=== PATIENT | female | born 1950 | race Caucasian/White ===

== ENCOUNTER 2017-11-24 15:53 | Emergency (ER) | payer MEDICARE, MEDICAID ==
--- NOTE | 2017-11-24 16:31 | EDM.PDOC ---
ED HPI GENERAL MEDICAL PROBLEM - General Chief Complaint: Upper Extremity Injury/Pain Stated Complaint: MEDICAL Time Seen by Provider: 11/24/17 16:00 Source of Information: Reports: Patient, EMS, RN History Limitations: Reports: No Limitations - History of Present Illness INITIAL COMMENTS - FREE TEXT/NARRATIVE: 67 yo female with MS was being moved with a [employer] lift and got dropped. Initially had pain in the L elbow area primarily from the fall so was sent via EMS for eval. Has not been given any analgesia for this so far, but on arrival in the ER her pain is almost completely gone. 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) Past Medical History Musculoskeletal History: Reports: Muscular Dystrophy Neurological History: Reports: MS - Past Surgical History Female Surgical History: Reports: Tubal Ligation Social & Family History - Tobacco Use Smoking Status *Q: Never Smoker Review of Systems - Review of Systems Review Of Systems: See Below Constitutional: Reports: No Symptoms Eyes: Reports: No Symptoms Ears: Reports: No Symptoms Nose: Reports: No Symptoms Mouth/Throat: Reports: No Symptoms Respiratory: Reports: No Symptoms Cardiovascular: Reports: No Symptoms GI/Abdominal: Reports: No Symptoms Genitourinary: Reports: No Symptoms Musculoskeletal: Reports: No Symptoms Skin: Reports: No Symptoms Neurological: Reports: No Symptoms ED EXAM, GENERAL - Physical Exam Exam: See Below Exam Limited By: No Limitations General Appearance: Alert, WD/WN, No Apparent Distress, Obese Eye Exam: Bilateral Eye: EOMI, Normal Inspection, PERRL Ears: Normal External Exam, Normal Canal, Hearing Grossly Normal Ear Exam: Bilateral Ear: Auricle Normal, Canal Normal Nose: Normal Inspection, Normal Mucosa, No Blood Throat/Mouth: Normal Inspection, Normal Lips, Normal Oropharynx, Normal Voice, No Airway Compromise Head: Atraumatic, Normocephalic Neck: Normal Inspection, Supple Respiratory/Chest: No Respiratory Distress, Lungs Clear, Normal Breath Sounds Cardiovascular: Regular Rate, Rhythm, No Edema GI/Abdominal: Normal Bowel Sounds, Soft, Non-Tender, No Distention Back Exam: Normal Inspection. No: CVA Tenderness (R), CVA Tenderness (L) Extremities: Normal Inspection, Non-Tender, No Pedal Edema, Other (Has some contractures from her MS, but movement is pain-free) Neurological: Alert, Oriented, CN II-XII Intact, No Motor/Sensory Deficits Psychiatric: Normal Affect, Normal Mood Skin Exam: Warm, Dry, Intact, Normal Color, No Rash Lymphatic: No Adenopathy Course - Vital Signs Last Recorded V/S: Last Vital Signs Temp 36.5 C 11/24/17 16:08 Pulse 72 11/24/17 16:08 Resp 18 11/24/17 16:08 BP 135/78 11/24/17 16:08 Pulse Ox 95 11/24/17 16:08 Departure - Departure Time of Disposition: 16:30 Disposition: Home, Self-Care 01 Condition: Good Clinical Impression: Contusion of elbow, left Qualifiers: Encounter type: initial encounter Qualified Code(s): S50.02XA - Contusion of left elbow, initial encounter - Discharge Information Instructions: Contusion, [id number] Referrals: PCP,None [Primary Care Provider] - Forms: ED Department Discharge Additional Instructions: Continue usual cares. Recheck as needed.
== END 2017-11-24 17:59 | disposition home or self-care (01) ==
LOC: JP.ED 15:53
DX: S50.02XA Contusion of left elbow, initial encounter (principal); W17.89XA Other fall from one level to another, initial encounter
CPT/HCPCS: 99283

== ENCOUNTER 2019-03-07 00:19 | Emergency (ER) | payer MEDICARE, MEDICAID ==
--- NOTE | 2019-03-07 02:01 | EDM.PDOC ---
ED HPI GENERAL MEDICAL PROBLEM - General Chief Complaint: Genitourinary Problem Stated Complaint: UTI?? Time Seen by Provider: 03/07/19 01:00 Source of Information: Reports: Patient, Family History Limitations: Reports: No Limitations - History of Present Illness INITIAL COMMENTS - FREE TEXT/NARRATIVE: 68-year-old female lives in assisted care living complex. She has numerous medical problems including MS and is a quadriplegic. She has been running fevers today which was suspected to be a urinary tract infection which she often gets because of the full-time suprapubic catheter. She is unable to feel any pain because of her quadriplegia. She does see a urologist and neurologist at [facility] at [place]. She was feeling weaker than usual today. She was transferred here by EMS. 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, Other (see below) Other Treatments BLUEPRINT CLERK: tylenol at 2345 prior to transfer - Related Data Allergies Allergy/AdvReac Type Severity Reaction Status Date / Time Latex, Natural Rubber Allergy Rash Verified 03/07/19 00:29 Penicillins Allergy Cannot Verified 03/07/19 00:29 Remember Home Meds: Home Meds Baclofen 10 mg PO QID 11/24/17 [History] Furosemide [Lasix] 20 mg PO DAILY 11/24/17 [History] Gabapentin [Neurontin] 300 mg PO BEDTIME 11/24/17 [History] LORazepam 0.5 mg PO BID 11/24/17 [History] Losartan [Cozaar] 25 mg PO ACLUNCH 11/24/17 [History] Metoclopramide [Reglan] 10 mg PO BEDTIME 11/24/17 [History] Omeprazole 20 mg PO ACBREAKFAST 11/24/17 [History] Venlafaxine [Effexor XR] 150 mg PO DAILY 11/24/17 [History] Acetaminophen 500 mg PO BID 03/07/19 [History] Fluticasone Furoate [Arnuity Ellipta] 50 mcg NASBOTH DAILY 03/07/19 [History] Loratadine 10 mg PO DAILY 03/07/19 [History] Vitamin B Complex [B Complex] 1 each PO DAILY 03/07/19 [History] traZODone HCl [Trazodone HCl] 50 mg PO BEDTIME 03/07/19 [History] Past Medical History Genitourinary History: Reports: Other (See Below) 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: Musculoskeletal History: Reports: Muscular Dystrophy Neurological History: Reports: MS - Infectious Disease History Infectious Disease History: Reports: Chicken Pox - Past Surgical History Female Surgical History: Reports: Tubal Ligation Social & Family History - Family History Family Medical History: Unobtainable - Tobacco Use Smoking Status *Q: Never Smoker Second Hand Smoke Exposure: No - Caffeine Use Caffeine Use: Reports: Coffee - Recreational Drug Use Recreational Drug Use: No ED ROS GENERAL - Review of Systems Review Of Systems: See Below Constitutional: Reports: Fever, Chills, Weakness HEENT: Reports: No Symptoms Respiratory: Reports: No Symptoms Cardiovascular: Reports: No Symptoms GI/Abdominal: Reports: No Symptoms. Denies: Diarrhea, Nausea ED EXAM, RENAL/ - Physical Exam Exam: See Below Exam Limited By: No Limitations General Appearance: Alert Nose: Normal Inspection Throat/Mouth: Normal Inspection Respiratory/Chest: No Respiratory Distress, Lungs Clear, Normal Breath Sounds Cardiovascular: Normal Peripheral Pulses, Regular Rate, Rhythm GI/Abdominal: Normal Bowel Sounds, Soft, Non-Tender (Female) Exam: Other (Suprapubic catheter looks normal.) Neurological: Alert, Oriented Course - Vital Signs Last Recorded V/S: Last Vital Signs Temp 37.6 C 03/07/19 04:39 Pulse 101 H 03/07/19 04:39 Resp 14 03/07/19 04:39 BP 157/73 H 03/07/19 04:39 Pulse Ox 92 L 03/07/19 04:39 - Orders/Labs/Meds Orders: Active Orders 24 hr Category Date Time Status Peripheral IV Care [RC] . DIRECTED Care 03/07/19 02:40 Active Chest 1V Frontal [CR] Urgent Exams 03/07/19 02:31 Taken CULTURE BLOOD [BC] Urgent Lab 03/07/19 02:45 Received CULTURE BLOOD [BC] Urgent Lab 03/07/19 02:50 Received Blood Culture x2 Reflex Set [OM.PC] Urgent Oth 03/07/19 02:34 Ordered Peripheral IV Insertion Adult [OM.PC] Urgent Oth 03/07/19 02:39 Ordered Labs: Laboratory Tests 03/07/19 03/07/19 03/07/19 Range/Units 01:22 01:22 01:22 WBC 20.2 H (4.5-11.0) K/uL RBC 4.25 (3.30-5.50) M/uL Hgb 12.5 (12.0-15.0) g/dL Hct 38.0 (36.0-48.0) % MCV 89 (80-98) fL MCH 29 (27-31) pg MCHC 33 (32-36) % Plt Count 290 (150-400) K/uL Neut % (Auto) 93 H (36-66) % Lymph % (Auto) 5 L (24-44) % Orange % (Auto) 3 (2-6) % Eos % (Auto) 0 L (2-4) % Baso % (Auto) 0 (0-1) % Sodium 132 L (140-148) mmol/L Potassium 3.9 (3.6-5.2) mmol/L Chloride 95 L (100-108) mmol/L Carbon Dioxide 25 (21-32) mmol/L Anion Gap 15.9 H (5.0-14.0) mmol/L BUN 13 (7-18) mg/dL Creatinine 0.8 (0.6-1.0) mg/dL Est Cr Clr Drug Dosing 54.71 mL/min Estimated GFR (MDRD) > 60 (>60) Glucose 144 H (74-106) mg/dL Lactic Acid (0.4-2.0) mmol/L Calcium 9.1 (8.5-10.1) mg/dL Total Bilirubin 0.2 (0.2-1.0) mg/dL AST 72 H (15-37) U/L ALT 86 H (12-78) U/L Alkaline Phosphatase 101 (46-116) U/L Total Protein 7.5 (6.4-8.2) g/dL Albumin 3.1 L (3.4-5.0) g/dL Globulin 4.4 H (2.3-3.5) g/dL Albumin/Globulin Ratio 0.7 L (1.2-2.2) Urine Color Yellow Urine Appearance Slightly cloudy Urine pH 7.0 (4.5-8.0) Ur Specific [place] 1.010 (1.008-1.030) Urine Protein Negative (NEGATIVE) mg/dL Urine Glucose (UA) Normal (NEGATIVE) mg/dL Urine Ketones Negative (NEGATIVE) mg/dL Urine Occult Blood Moderate (NEGATIVE) Urine Nitrite Positive H (NEGATIVE) Urine Bilirubin Negative (NEGATIVE) Urine Urobilinogen Normal (NORMAL) mg/dL Ur Leukocyte Esterase Moderate (NEGATIVE) Urine RBC 0-5 (0-5) Urine WBC 5-10 H (0-5) Ur Epithelial Cells Few Amorphous Sediment Moderate Urine Bacteria Many Urine Mucus Not seen 03/07/19 Range/Units 01:22 WBC (4.5-11.0) K/uL RBC (3.30-5.50) M/uL Hgb (12.0-15.0) g/dL Hct (36.0-48.0) % MCV (80-98) fL MCH (27-31) pg MCHC (32-36) % Plt Count (150-400) K/uL Neut % (Auto) (36-66) % Lymph % (Auto) (24-44) % Orange % (Auto) (2-6) % Eos % (Auto) (2-4) % Baso % (Auto) (0-1) % Sodium (140-148) mmol/L Potassium (3.6-5.2) mmol/L Chloride (100-108) mmol/L Carbon Dioxide (21-32) mmol/L Anion Gap (5.0-14.0) mmol/L BUN (7-18) mg/dL Creatinine (0.6-1.0) mg/dL Est Cr Clr Drug Dosing mL/min Estimated GFR (MDRD) (>60) Glucose (74-106) mg/dL Lactic Acid 2.7 H (0.4-2.0) mmol/L Calcium (8.5-10.1) mg/dL Total Bilirubin (0.2-1.0) mg/dL AST (15-37) U/L ALT (12-78) U/L Alkaline Phosphatase (46-116) U/L Total Protein (6.4-8.2) g/dL Albumin (3.4-5.0) g/dL Globulin (2.3-3.5) g/dL Albumin/Globulin Ratio (1.2-2.2) Urine Color Urine Appearance Urine pH (4.5-8.0) Ur Specific [place] (1.008-1.030) Urine Protein (NEGATIVE) mg/dL Urine Glucose (UA) (NEGATIVE) mg/dL Urine Ketones (NEGATIVE) mg/dL Urine Occult Blood (NEGATIVE) Urine Nitrite (NEGATIVE) Urine Bilirubin (NEGATIVE) Urine Urobilinogen (NORMAL) mg/dL Ur Leukocyte Esterase (NEGATIVE) Urine RBC (0-5) Urine WBC (0-5) Ur Epithelial Cells Amorphous Sediment Urine Bacteria Urine Mucus Meds: Medications Discontinued Medications Generic Name Dose Route Start Last Admin Trade Name Freq PRN Reason Stop Dose Admin Sodium Chloride 1,000 mls @ 125 mls/hr 03/07/19 02:45 03/07/19 03:12 Normal Saline IV 125 mls/hr ASDIRECTED BERTO Administration Ciprofloxacin/Dextrose 400 mg/ 200 mls @ 200 mls/hr 03/07/19 03:06 03/07/19 03:54 Premix IV 03/07/19 04:05 200 mls/hr ONETIME ONE Administration Sodium Chloride 10 ml 03/07/19 02:39 03/07/19 03:11 Saline Flush FLUSH 10 ml ASDIRECTED PRN Administration Keep Vein Open - Radiology Interpretation Free Text/Narrative:: Chest x-ray appears normal. - Re-Assessments/Exams Free Text/Narrative Re-Assessment/Exam: 03/07/19 03:20 An IV was started with normal saline and after seeing her elevated white blood count and lactic acid levels he was felt that there is a possibility of sepsis. Blood cultures were done and she was started on Cipro 400 mg IV. We did not have any open beds at [facility] so the patient has chosen to go to [place]. Departure - Departure Time of Disposition: 04:45 Disposition: DC/Tfer to Acute Hospital 02 Condition: Good Clinical Impression: UTI, Urinary tract infectious disease, Sepsis - Discharge Information *PRESCRIPTION DRUG MONITORING PROGRAM REVIEWED*: No *COPY OF PRESCRIPTION DRUG MONITORING REPORT IN PATIENT RADHA: No Referrals: PCP,None [Primary Care Provider] - Forms: ED Department Discharge Care Plan Goals: Patient was transferred to [place] under care of Dr. Kulkarni. We had no beds in [place]. Transfer will be made by EMS. - My Orders Last 24 Hours: My Active Orders 03/07/19 02:31 Chest 1V Frontal [CR] Urgent 03/07/19 02:34 Blood Culture x2 Reflex Set [OM.PC] Urgent 03/07/19 02:39 Peripheral IV Insertion Adult [OM.PC] Urgent 03/07/19 02:40 Peripheral IV Care [RC] . DIRECTED 03/07/19 02:45 CULTURE BLOOD [BC] Urgent 03/07/19 02:50 CULTURE BLOOD [BC] Urgent - Assessment/Plan Last 24 Hours: My Active Orders 03/07/19 02:31 Chest 1V Frontal [CR] Urgent 03/07/19 02:34 Blood Culture x2 Reflex Set [OM.PC] Urgent 03/07/19 02:39 Peripheral IV Insertion Adult [OM.PC] Urgent 03/07/19 02:40 Peripheral IV Care [RC] . DIRECTED 03/07/19 02:45 CULTURE BLOOD [BC] Urgent 03/07/19 02:50 CULTURE BLOOD [BC] Urgent Plan: Transfer to [place]
[2019-03-07] MEDS ORDERED: Sodium Chloride 0.9% 10 ML Syringe FLUSH PRN (02:39)
[2019-03-07] MEDS ORDERED: Sodium Chloride 0.9% 1,000 ML IV SCH (02:45)
[2019-03-07] MEDS ORDERED: Ciprofloxacin in D5W 400 MG in Premix Bag 1 BAG IV ONE ×2 (03:06)
--- NOTE | 2019-03-10 09:24 | CRLCR ---
Final Report: INDICATION: Chest fever TECHNIQUE: Chest radiograph 1 view COMPARISON: None FINDINGS: Moderate degradation of image quality noted due to body habitus. Mediastinum: The mediastinum is normal in appearance. The heart silhouette is normal in size and morphology. Lung: Both lungs are unremarkable in appearance with small lung volumes. No sign of pleural effusion seen. No pneumothorax is identified. Musculoskeletal: Unremarkable for age. IMPRESSION: 1. No acute cardiopulmonary disease is seen. Dictated by: Pineda Mack MD @ 03/07/2019 03:28:48 Signed by: Pineda Mack MD @03/07/2019 3:28:48 AM (Electronic Signature MTDD
== END 2019-03-07 04:57 ==
LOC: JP.ED 00:19
DX: A41.9 Sepsis, unspecified organism (principal); N39.0 Urinary tract infection, site not specified; G35 Multiple sclerosis; Z79.899 Other long term (current) drug therapy
CPT/HCPCS: 36415; 71045; 80053; 81001; 83605; 85025; 87040; 96361; 96365; 99284; J0744; J7030

== ENCOUNTER 2019-04-02 16:34 | Emergency (ER) | payer MEDICARE, MEDICAID ==
--- NOTE | 2019-04-02 17:40 | EDM.PDOC ---
ED HPI GENERAL MEDICAL PROBLEM - General Chief Complaint: Genitourinary Problem Stated Complaint: NEEDS CATHETER Time Seen by Provider: 04/02/19 17:30 Source of Information: Reports: Patient, Old Records, RN History Limitations: Reports: No Limitations - History of Present Illness INITIAL COMMENTS - FREE TEXT/NARRATIVE: 68 yo female with MS has a indwelling suprapubic catheter. Today when they were changing her catheter at the senior living they were unable to get a new catheter in. She was sent here via [facility] for catheter placement. Gets her care for this through [facility]. Has had recent UTI's. No recent fever. 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) (failed attempt at catheter replacement at [facility]) - Related Data Allergies Allergy/AdvReac Type Severity Reaction Status Date / Time Latex, Natural Rubber Allergy Rash Verified 03/07/19 00:29 Penicillins Allergy Cannot Verified 03/07/19 00:29 Remember Home Meds: Home Meds Baclofen 10 mg PO QID 11/24/17 [History] Furosemide [Lasix] 20 mg PO DAILY 11/24/17 [History] Gabapentin [Neurontin] 300 mg PO BEDTIME 11/24/17 [History] LORazepam 0.5 mg PO BID 11/24/17 [History] Losartan [Cozaar] 25 mg PO ACLUNCH 11/24/17 [History] Metoclopramide [Reglan] 10 mg PO BEDTIME 11/24/17 [History] Omeprazole 20 mg PO ACBREAKFAST 11/24/17 [History] Venlafaxine [Effexor XR] 150 mg PO DAILY 11/24/17 [History] Acetaminophen 500 mg PO BID 03/07/19 [History] Fluticasone Furoate [Arnuity Ellipta] 50 mcg NASBOTH DAILY 03/07/19 [History] Loratadine 10 mg PO DAILY 03/07/19 [History] Vitamin B Complex [B Complex] 1 each PO DAILY 03/07/19 [History] traZODone HCl [Trazodone HCl] 50 mg PO BEDTIME 03/07/19 [History] Past Medical History Genitourinary History: Reports: Other (See Below) 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 Denies: Dysuria Musculoskeletal: Reports: No Symptoms Skin: Reports: No Symptoms Neurological: Reports: Other (Has MS) ED EXAM, RENAL/ - Physical Exam Exam: See Below Exam Limited By: No Limitations General Appearance: Alert, WD/WN, No Apparent Distress, Other (quadriplegia from MS) Eye Exam: Bilateral Eye: Normal Inspection Ears: Normal External Exam, Normal Canal, Hearing Grossly Normal Nose: Normal Inspection, No Blood Throat/Mouth: Normal Inspection, Normal Lips, Normal Voice, No Airway Compromise Head: Atraumatic, Normocephalic Neck: Normal Inspection Respiratory/Chest: No Respiratory Distress, Lungs Clear, Normal Breath Sounds, No Accessory Muscle Use Cardiovascular: Regular Rate, Rhythm, No Edema GI/Abdominal: Normal Bowel Sounds, Soft, Non-Tender, No Distention (Female) Exam: Other (suprapubic catheter missing on arrival. ) Back Exam: Normal Inspection Extremities: Normal Inspection, Normal Range of Motion, Non-Tender, No Pedal Edema Neurological: Alert, Oriented, Normal Cognition, No Motor/Sensory Deficits Psychiatric: Normal Affect, Normal Mood Skin Exam: Warm, Dry, Intact, Normal Color, No Rash Course - Vital Signs Text/Narrative:: successful suprapubic catheter replacement by RN Last Recorded V/S: Last Vital Signs Temp 36.7 C 04/02/19 17:09 Pulse 80 04/02/19 17:09 Resp 16 04/02/19 17:09 BP 141/91 H 04/02/19 17:09 Pulse Ox 99 04/02/19 17:09 - Orders/Labs/Meds Orders: Active Orders 24 hr Category Date Time Status UA W/MICROSCOPIC [URIN] Stat Lab 04/02/19 17:28 Ordered Departure - Departure Time of Disposition: 17:40 Disposition: Home, Self-Care 01 Condition: Good Clinical Impression: Suprapubic catheter dysfunction Qualifiers: Encounter type: initial encounter Qualified Code(s): T83.010A - Breakdown ( mechanical) of cystostomy catheter, initial encounter - Discharge Information *PRESCRIPTION DRUG MONITORING PROGRAM REVIEWED*: No *COPY OF PRESCRIPTION DRUG MONITORING REPORT IN PATIENT RADHA: No Referrals: Handy Ray MD [Primary Care Provider] - Additional Instructions: May benefit from having another UA ordered with UC if indicated. Urine not caught at today's ER visit. - My Orders Last 24 Hours: My Active Orders 04/02/19 17:28 UA W/MICROSCOPIC [URIN] Stat - Assessment/Plan Last 24 Hours: My Active Orders 04/02/19 17:28 UA W/MICROSCOPIC [URIN] Stat
== END 2019-04-02 18:20 | disposition home or self-care (01) ==
LOC: JP.ED 16:34
DX: T83.090A Other mechanical complication of cystostomy catheter, initial encounter (principal); Z88.0 Allergy status to penicillin; Z79.899 Other long term (current) drug therapy; Z98.51 Tubal ligation status; Z91.040 Latex allergy status
CPT/HCPCS: 51702; 51705; 99281; 99283

== ENCOUNTER 2019-04-19 19:09 | Emergency (ER) | payer MEDICARE, MEDICAID ==
--- NOTE | 2019-04-19 19:30 | EDM.PDOC ---
ED HPI GENERAL MEDICAL PROBLEM - General Chief Complaint: Genitourinary Problem Stated Complaint: VIA [place]TH UTI Time Seen by Provider: 04/19/19 19:20 Source of Information: Reports: Patient, RN Notes Reviewed History Limitations: Reports: No Limitations - History of Present Illness INITIAL COMMENTS - FREE TEXT/NARRATIVE: 68-year-old female presents emergency department today complaint of difficulty with her suprapubic catheter. She states over the last couple days she's noticed that her catheter does not function well and that she has had urinary leakage her urethra. She complains of no pain no fevers - Related Data Allergies Allergy/AdvReac Type Severity Reaction Status Date / Time Latex, Natural Rubber Allergy Rash Verified 03/07/19 00:29 Penicillins Allergy Cannot Verified 03/07/19 00:29 Remember Home Meds: Home Meds Baclofen 10 mg PO QID 11/24/17 [History] Furosemide [Lasix] 20 mg PO DAILY 11/24/17 [History] Gabapentin [Neurontin] 300 mg PO BEDTIME 11/24/17 [History] LORazepam 0.5 mg PO BID 11/24/17 [History] Losartan [Cozaar] 25 mg PO ACLUNCH 11/24/17 [History] Metoclopramide [Reglan] 10 mg PO BEDTIME 11/24/17 [History] Omeprazole 20 mg PO ACBREAKFAST 11/24/17 [History] Venlafaxine [Effexor XR] 150 mg PO DAILY 11/24/17 [History] Acetaminophen 500 mg PO BID 03/07/19 [History] Fluticasone Furoate [Arnuity Ellipta] 50 mcg NASBOTH DAILY 03/07/19 [History] Loratadine 10 mg PO DAILY 03/07/19 [History] Vitamin B Complex [B Complex] 1 each PO DAILY 03/07/19 [History] traZODone HCl [Trazodone HCl] 50 mg PO BEDTIME 03/07/19 [History] Past Medical History HEENT History: Reports: Impaired Vision Cardiovascular History: Reports: Hypertension Genitourinary History: Reports: Other (See Below) 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: Musculoskeletal History: Reports: Muscular Dystrophy Neurological History: Reports: MS - Infectious Disease History Infectious Disease History: Reports: Chicken Pox - Past Surgical History Female Surgical History: Reports: Tubal Ligation Musculoskeletal Surgical History: Reports: Amputation Social & Family History - Family History Family Medical History: Unobtainable - Tobacco Use Smoking Status *Q: Never Smoker - Caffeine Use Caffeine Use: Reports: Coffee ED ROS GENERAL - Review of Systems Review Of Systems: See Below Constitutional: Reports: No Symptoms : Reports: Incontinence, Other (Suprapubic catheter dysfunction) ED EXAM, GI/ABD - Physical Exam Exam: See Below Exam Limited By: No Limitations General Appearance: Alert, WD/WN, No Apparent Distress Respiratory/Chest: No Respiratory Distress GI/Abdominal Exam: Normal Bowel Sounds, Soft, Non-Tender, Other (Suprapubic catheter insertion site clean dry and intact no erythema appreciated) Course - Vital Signs Last Recorded V/S: Last Vital Signs Temp 97.4 F 04/19/19 19:15 Pulse 98 04/19/19 19:15 Resp 16 04/19/19 19:15 BP 178/82 H 04/19/19 19:15 Pulse Ox 98 04/19/19 19:15 - Orders/Labs/Meds Orders: Active Orders 24 hr Category Date Time Status Bladder Scan [RC] ASDIRECTED Care 04/19/19 19:27 Active CULTURE URINE [RM] Urgent Lab 04/19/19 20:42 Ordered Suprapubic Catheter Management [OM.PC] Routine Oth 04/19/19 19:27 Ordered Labs: Laboratory Tests 04/19/19 Range/Units 20:13 Urine Color Urine Appearance Turbid Urine pH 6.0 (4.5-8.0) Ur Specific [place] 1.010 (1.008-1.030) Urine Protein 500 H (NEGATIVE) mg/dL Urine Glucose (UA) Normal (NEGATIVE) mg/dL Urine Ketones Negative (NEGATIVE) mg/dL Urine Occult Blood Large (NEGATIVE) Urine Nitrite Negative (NEGATIVE) Urine Bilirubin Negative (NEGATIVE) Urine Urobilinogen Normal (NORMAL) mg/dL Ur Leukocyte Esterase Large (NEGATIVE) Urine RBC 50-75 H (0-5) Urine WBC Packed H (0-5) Ur Epithelial Cells Not seen Amorphous Sediment Not seen Urine Bacteria Many Urine Mucus Not seen Meds: Medications Discontinued Medications Generic Name Dose Route Start Last Admin Trade Name Freq PRN Reason Stop Dose Admin Ceftriaxone Sodium 1 gm/ 0 gm 04/19/19 20:42 Lidocaine HCl 2.1 ml IM 04/19/19 20:43 ONETIME ONE Departure - Departure Time of Disposition: 20:49 Disposition: Home, Self-Care 01 Condition: Fair Clinical Impression: UTI, Urinary tract infectious disease Suprapubic catheter dysfunction Qualifiers: Encounter type: initial encounter Qualified Code(s): T83.010A - Breakdown ( mechanical) of cystostomy catheter, initial encounter - Discharge Information Referrals: PCP,None [Primary Care Provider] - Forms: ED Department Discharge Additional Instructions: Take full course of antibiotics, follow-up primary care in 3-5 days if not better call return to the emergency department worsening of symptoms. - My Orders Last 24 Hours: My Active Orders 04/19/19 19:27 Bladder Scan [RC] ASDIRECTED Suprapubic Catheter Management [OM.PC] Routine 04/19/19 20:42 CULTURE URINE [RM] Urgent - Assessment/Plan Last 24 Hours: My Active Orders 04/19/19 19:27 Bladder Scan [RC] ASDIRECTED Suprapubic Catheter Management [OM.PC] Routine 04/19/19 20:42 CULTURE URINE [RM] Urgent Plan: Assessment Acuity = acute Site and laterality = urinary tract infection complicated suprapubic Etiology = bacterial cause Manifestations = catheter dysfunction Location of injury = Home Lab values = urinalysis reveals 75-100 RBCs consistent hematuria and packed WBCs consistent pyuria cultures pending Plan The catheter was replaced and one is functioning well, given her history 1 g Rocephin is provided now she is placed on antibiotics Bactrim DS 1 tab by mouth daily 14 days follow-up primary care 3-5 days if not better This note was dictated using [employer] voice recognition software please call with any questions on syntax or grammar.
[2019-04-19] MEDS ORDERED: cefTRIAXone 1 GM, Lidocaine 1% 2.1 ML IM ONE ×2 (20:42)
== END 2019-04-19 21:33 | disposition home or self-care (01) ==
LOC: JP.ED 19:09
DX: T83.010A Breakdown (mechanical) of cystostomy catheter, initial encounter (principal); N39.0 Urinary tract infection, site not specified; B96.89 Other specified bacterial agents as the cause of diseases classified elsewhere; I10 Essential (primary) hypertension; Z79.899 Other long term (current) drug therapy; Z88.0 Allergy status to penicillin; Z91.040 Latex allergy status
CPT/HCPCS: 51705; 51798; 81001; 87086; 87088; 87186; 96372; 99283; J0696; J2001

== ENCOUNTER 2019-08-29 07:21 | Day surgery (SDC) | payer MEDICARE, MEDICAID ==
[2019-08-29] MEDS ORDERED: Sodium Chloride 0.9% 1,000 ML IV SCH (08:00)
[2019-08-29] MEDS ORDERED: fentaNYL 100 MCG/2 ML SDV ONE (08:07)
[2019-08-29] MEDS ORDERED: Midazolam 1 MG/ML 2 ML SDV ONE (08:07)
[2019-08-29] MEDS ORDERED: Propofol 200 MG/20 ML SDV ONE (08:07)
--- NOTE | 2019-08-29 14:13 | OR ---
DATE OF PROCEDURE: 08/29/2019 SURGEON: Jordan Block MD PROCEDURE: Colonoscopy. FINDINGS: Normal colonoscopy. COMPLICATIONS: None. COMMERCIAL MAKEUP ARTIST: None. ANESTHESIA: MAC. PROCEDURE IN DETAIL: The patient was placed in a left lateral decubitus position. Digital rectal exam was performed without abnormality. Scope was introduced and advanced atraumatically to the ileocecal valve. Scope was brought back through the ascending, transverse, descending colon, and retroflexed. No evidence of old or new blood. No masses. No polyps. No colitis or diverticulitis or diverticulosis. No abnormalities on retroflexion. The patient tolerated the procedure well. Jordan Block MD /[id number]
== END 2019-08-29 10:31 ==
LOC: JP.SDS 07:21
PROVIDERS: ATTEND Surgery
DX: Z12.11 Encounter for screening for malignant neoplasm of colon (principal); I10 Essential (primary) hypertension; K21.9 Gastro-esophageal reflux disease without esophagitis; G35 Multiple sclerosis; F17.210 Nicotine dependence, cigarettes, uncomplicated; Z88.0 Allergy status to penicillin; Z91.040 Latex allergy status
CPT/HCPCS: G0121; J2250; J2704; J3010; J7030

== ENCOUNTER 2020-11-23 17:57 | Emergency (ER) | payer MEDICARE, MEDICAID ==
[2020-11-23] MEDS ORDERED: Acetaminophen 325 MG Tab PO ONE (19:07)
--- NOTE | 2020-11-23 19:14 | EDM.PDOC ---
ED HPI GENERAL MEDICAL PROBLEM - General Chief Complaint: General Stated Complaint: ALLERGIC REACTION Time Seen by Provider: 11/23/20 19:06 Source of Information: Reports: Patient, EMS, RN Notes Reviewed History Limitations: Reports: No Limitations - History of Present Illness INITIAL COMMENTS - FREE TEXT/NARRATIVE: 70-year-old female presents emergency department they sent in from [facility], she has had a fever as well as some flushing in her face they are concerned she may be having allergic reaction. She has had no new foods no new medications however she did receive a Covid shot within the last 24 hours. She has no complaints at this time - Related Data Allergies Allergy/AdvReac Type Severity Reaction Status Date / Time Penicillins Allergy Cannot Verified 11/23/20 18:10 Remember pork derived (porcine) Allergy Other Verified 11/23/20 18:10 Home Meds: Home Meds Baclofen 10 mg PO QID 11/24/17 [History] Furosemide [Lasix] 20 mg PO DAILY 11/24/17 [History] Gabapentin [Neurontin] 300 mg PO BEDTIME 11/24/17 [History] LORazepam 0.5 mg PO BID 11/24/17 [History] Losartan [Cozaar] 25 mg PO ACLUNCH 11/24/17 [History] Omeprazole 20 mg PO ACBREAKFAST 11/24/17 [History] Venlafaxine [Effexor XR] 150 mg PO DAILY 11/24/17 [History] Fluticasone Furoate [Arnuity Ellipta] 50 mcg NASBOTH BID 03/07/19 [History] Loratadine 10 mg PO DAILY 03/07/19 [History] Vitamin B Complex [B Complex] 1 each PO DAILY 03/07/19 [History] traZODone HCl [Trazodone HCl] 50 mg PO BEDTIME 03/07/19 [History] Multivitamin [Daily Multiple Vitamin] 1 each PO DAILY 06/12/19 [History] Acetaminophen [Tylenol Extra Strength] 500 mg PO Q6H PRN 08/26/19 [History] Acetaminophen [Tylenol] 650 mg RC Q4H PRN 08/26/19 [History] Bacitracin Zinc 1 each TP DAILY 08/26/19 [History] Bacitracin [Bacitracin Oint] 1 applic TOP DAILY PRN 08/26/19 [History] Dextran 70/Hypromellose [Artificial Tears] 1 drop EYEBOTH DAILY PRN 08/26/19 [History] Diclofenac Sodium [Voltaren 0.1% Ophth Soln] 4 applic TOP DAILY PRN 08/26/19 [History] L.acidoph,Paracasei, B.lactis [Probiotic] 1 each PO DAILY 08/26/19 [History] Loperamide [Imodium] 2 mg PO ASDIRECTED PRN 08/26/19 [History] Methyl Salicylate/Menthol [Muscle Rub Cream] 1 applic TOP DAILY 08/26/19 [History] Nystatin 100,000 unit PO DAILY 08/26/19 [History] [place]-3 Fatty Acids/Fish Oil [[facility] Fish Oil 1,200 mg Softgel] 1 each PO DAILY 08/26/19 [History] Propylene Glycol/PEG 400/Pf [Systane 0.3-0.4% Eye Drops] 1 each EYEBOTH DAILY 08/26/19 [History] bisacodyL [Dulcolax] 10 mg RC DAILY PRN 08/26/19 [History] polyethylene glycoL 3350 [MiraLAX] 17 gm PO BID 08/26/19 [History] Past Medical History HEENT History: Reports: Impaired Vision Cardiovascular History: Reports: Hypertension Gastrointestinal History: Reports: Chronic Constipation Genitourinary History: Reports: Other (See Below) Other Genitourinary History: 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: Musculoskeletal History: Reports: Other (See Below) Other Musculoskeletal History: MS Neurological History: Reports: MS Psychiatric History: Reports: Depression Endocrine/Metabolic History: Reports: Obesity/BMI 30+ - Infectious Disease History Infectious Disease History: Reports: C-Difficile, Measles, MRSA, Mumps - Past Surgical History HEENT Surgical History: Reports: Adenoidectomy, Tonsillectomy Female Surgical History: Reports: Oophorectomy, Tubal Ligation Social & Family History - Family History Family Medical History: Unobtainable - Tobacco Use Tobacco Use Status *Q: Never Tobacco User - Caffeine Use Caffeine Use: Reports: Coffee - Recreational Drug Use Recreational Drug Use: No ED ROS GENERAL - Review of Systems Review Of Systems: See Below Constitutional: Reports: Fever, Other (Facial flushing) HEENT: Reports: No Symptoms Respiratory: Reports: No Symptoms Cardiovascular: Reports: No Symptoms GI/Abdominal: Reports: No Symptoms ED EXAM, GENERAL - Physical Exam Exam: See Below Exam Limited By: No Limitations General Appearance: Alert, WD/WN, No Apparent Distress, Other (I do not appreciate any facial flushing) Respiratory/Chest: No Respiratory Distress, Lungs Clear, Normal Breath Sounds, No Accessory Muscle Use, Chest Non-Tender Cardiovascular: Regular Rate, Rhythm, No Murmur GI/Abdominal: Soft, Non-Tender Course - Vital Signs Last Recorded V/S: Last Vital Signs Temp 102.3 F H 11/23/20 18:33 Pulse 104 H 11/23/20 18:40 Resp 16 11/23/20 18:33 BP 177/94 H 11/23/20 18:40 Pulse Ox 96 11/23/20 18:40 - Orders/Labs/Meds Meds: Medications Discontinued Medications Generic Name Dose Route Start Last Admin Trade Name Freq PRN Reason Stop Dose Admin Acetaminophen 650 mg 11/23/20 19:07 Tylenol PO 11/23/20 19:08 NOW ONE Departure - Departure Time of Disposition: 19:13 Disposition: DC/Tfer to Communication Center Coordinator [facility] 65 Condition: Fair Clinical Impression: Allergic reaction to COVID-19 vaccine - Discharge Information Referrals: Amrita Harrison INSTRUCTOR DECORATING [Primary Care Provider] - Additional Instructions: Continue with symptomatic care of Tylenol Motrin as needed, please followup with your primary care provider in 3-5 days if not better, please call return to the emergency department with worsening of symptoms. Sepsis Event Note (ED) - Evaluation Sepsis Screening Result: No Definite Risk - Focused Exam Vital Signs: Vital Signs Temp Pulse Resp BP Pulse Ox 11/23/20 18:40 104 H 177/94 H 96 11/23/20 18:33 102.3 F H 99 16 178/74 H 95 11/23/20 18:00 102.3 F H 99 16 178/74 H 95 - Assessment/Plan Plan: Assessment Acuity = acute Site and laterality = probable adverse reaction Covid vaccine Etiology = vaccine was administered from [employer] do not know the brand name Manifestations = none Location of injury = Home Lab values = none Plan Treated with Tylenol fever otherwise she is asymptomatic elected to do watchful waiting at this time she will be returned to the long term This note was dictated using [employer] voice recognition software please call with any questions on syntax or grammar.
== END 2020-11-23 20:20 ==
LOC: JP.ED 17:57
DX: T80.62XA Other serum reaction due to vaccination, initial encounter (principal); I10 Essential (primary) hypertension; E66.9 Obesity, unspecified; Z68.32 Body mass index [BMI] 32.0-32.9, adult; Z88.0 Allergy status to penicillin; Z91.018 Allergy to other foods; Z79.899 Other long term (current) drug therapy
CPT/HCPCS: 99284; A9270

== ENCOUNTER 2021-12-12 10:37 | Emergency (ER) | payer MEDICARE, MEDICAID | END 2021-12-12 12:17 | disposition home or self-care (01) | LOC: JP.ED 10:37 | DX: N39.0 Urinary tract infection, site not specified (principal); R39.89 Other symptoms and signs involving the genitourinary system; G35 Multiple sclerosis; L92.9 Granulomatous disorder of the skin and subcutaneous tissue, unspecified; I10 Essential (primary) hypertension; E66.9 Obesity, unspecified; Z68.32 Body mass index [BMI] 32.0-32.9, adult; Z93.59 Other cystostomy status; Z79.899 Other long term (current) drug therapy | CPT/HCPCS: 81001; 87086; 87088; 87186; 99283; 99284 ==

== ENCOUNTER 2022-12-24 11:35 | Emergency (ER) | payer MEDICARE, MEDICAID ==
[2022-12-24 12:40] LABS: ESTIMATED GFR 79 mL/min (>60); TROPONIN I HIGH SENSITIVITY 13.4 pg/mL (<=60.3)
[2022-12-24] MEDS ORDERED: Potassium Chloride 20 MEQ in Premix Bag 1 BAG IV ONE (12:58)
[2022-12-24] MEDS ORDERED: Potassium Chloride 20 MEQ Tab.ER PO ONE (12:58)
[2022-12-24] MEDS ORDERED: Lactated Ringers 1,000 ML IV SCH (13:00)
[2022-12-24] MEDS ORDERED: cefTRIAXone 1 GM in Sodium Chloride 0.9% 50 ML IV ONE (14:29)
[2022-12-25] MEDS ORDERED: Furosemide 40 MG Tab PO ONE (00:10)
[2022-12-25] MEDS ORDERED: Baclofen 10 MG Tab PO ONE (00:10)
[2022-12-25] MEDS ORDERED: Metoclopramide 10 MG Tab PO ONE (00:10)
[2022-12-25] MEDS ORDERED: Melatonin 3 MG Tab PO STA (00:10)
[2022-12-25] MEDS ORDERED: Gabapentin 400 MG Cap PO STA (00:10)
[2022-12-25] MEDS ORDERED: Mirtazapine 15 MG Tab PO ONE (00:10)
== END 2022-12-25 08:14 | disposition home or self-care (01) ==
LOC: JP.ED 11:35
DX: N39.0 Urinary tract infection, site not specified (principal); E87.6 Hypokalemia; I10 Essential (primary) hypertension; E66.9 Obesity, unspecified; Z68.38 Body mass index [BMI] 38.0-38.9, adult; Z79.51 Long term (current) use of inhaled steroids; Z79.899 Other long term (current) drug therapy; Z88.0 Allergy status to penicillin; Z91.040 Latex allergy status; Z91.018 Allergy to other foods
CPT/HCPCS: 36415; 80053; 81001; 83605; 84484; 85025; 87086; 87088; 87186; 96361; 96365; 96366; 96368; 99285; A9270; J0696; J3480; J7120; 99283

== ENCOUNTER 2023-02-15 10:03 | Emergency (ER) | payer MEDICARE, MEDICAID ==
[2023-02-15] MEDS ORDERED: Potassium Chloride 20 MEQ Tab.ER PO ONE (10:44)
[2023-02-15] MEDS ORDERED: Magnesium Sulfate/Water 2 GM in Premix Bag 1 BAG IV ONE (10:44)
[2023-02-15] MEDS ORDERED: Sodium Chloride 0.9% 10 ML Syringe FLUSH PRN (10:45)
[2023-02-15] MEDS ORDERED: Potassium Chloride 10 MEQ in Premix Bag 1 BAG IV SCH (11:00)
[2023-02-15] MEDS: Potassium Chloride 10 MEQ in Premix Bag 1 BAG IV SCH ×2 (11:13→12:29)
== END 2023-02-15 14:55 ==
LOC: JP.ED 10:03
DX: G35 Multiple sclerosis (principal); M62.3 Immobility syndrome (paraplegic); E87.6 Hypokalemia; I10 Essential (primary) hypertension; E66.9 Obesity, unspecified; Z91.040 Latex allergy status; Z88.0 Allergy status to penicillin; Z91.014 Allergy to mammalian meats; Z79.899 Other long term (current) drug therapy; Z68.35 Body mass index [BMI] 35.0-35.9, adult
CPT/HCPCS: 36415; 80048; 96365; 96366; 96368; 99283; 99285; A9270; J3475; J3480; J3490

== ENCOUNTER 2025-10-11 10:25 | Emergency (ER) | payer MEDICARE, MEDICAID ==
[2025-10-11 11:51] LABS: BASOPHILS ABSOLUTE AUTO 0.03 K/uL (0.00-0.10); BASOPHILS PERCENT AUTO 0.4 % (0.1-1.3); EOSINOPHILS ABSOLUTE AUTO 0.60 K/uL (0.00-0.40); EOSINOPHILS PERCENT AUTO 8.8 % (0.0-5.4); IMMATURE GRAN PERCENT AUTO 0.3 % (0.0-0.7); LYMPHOCYTES ABSOLUTE AUTO 2.44 K/uL (0.8-3.3); LYMPHOCYTES PERCENT AUTO 35.7 % (11.4-47.7); MONOCYTES ABSOLUTE AUTO 0.90 K/uL (0.20-0.90); MONOCYTES PERCENT AUTO 13.2 % (3.3-12.6); NEUTROPHILS ABSOLUTE AUTO 2.84 K/uL (1.0-7.6); NEUTROPHILS PERCENT AUTO 41.6 % (40.0-78.1); PLATELET COUNT,PLT 274 K/uL (130-375); RED BLOOD CELL COUNT 4.02 M/uL (3.77-5.24); WHITE BLOOD CELL COUNT,WBC 6.8 K/uL (3.2-11.0)
[2025-10-11 11:52] LABS: BASE EXCESS VENOUS 2.2 mm/L; BICARBONATE,VENOUS 27.1 mmol/L; IMMATURE GRAN ABSOLUTE AUTO 0.02 K/uL (0.00-0.23); O2 SATURATION VENOUS 88.6; OXYHEMOGLOBIN 85.9 %; PCO2 VENOUS 45.8 mm/Hg; PH,VENOUS 7.390 (7.350-7.450); PO2 VENOUS 57.0 mm/Hg; TOTAL HEMOGLOBIN 13.1 g/dL (12.0-16.0)
[2025-10-11 12:09] LABS: INR 1.0
[2025-10-11 12:22] LABS: A/G RATIO 0.8 (1.2-2.2); ALANINE AMINOTRANSFERASE,ALT 57 U/L (12-78); ASPARTATE AMNIOTRANSFERASE,AST 43 U/L (15-37); BILIRUBIN TOTAL 0.4 mg/dL (0.2-1.0); BLOOD UREA NITROGEN,BUN 15 mg/dL (7-18); CARBON DIOXIDE,CO2 29 mmol/L (21-32); CHLORIDE,CL 103 mmol/L (100-108); CREATININE 0.6 mg/dL (0.6-1.0); EST CRCL DRUG DOSING (CG) 84.24 mL/min; ESTIMATED GFR 95 mL/min (>60); GLUCOSE RANDOM 105 mg/dL (74-106); POTASSIUM,K 4.2 mmol/L (3.6-5.2); PRO B-TYPE NATRIUR PEPT,BNPPRO 173 pg/mL (5-125); PROTEIN TOTAL,TP 7.6 g/dL (6.4-8.2); SODIUM,NA 140 mmol/L (140-148)
[2025-10-11 12:47] LABS: CORONAVIRUS COVID-19 NAA NEGATIVE (NEGATIVE); INFLUENZA A NAA NEGATIVE (NEGATIVE); INFLUENZA B NAA NEGATIVE (NEGATIVE); RESPIRATORY SYNCYTIAL VIR NAA NEGATIVE (NEGATIVE)
[2025-10-11 12:53] LABS: APPEARANCE,URINE SLIGHTLY CLOUDY (CLEAR); GLUCOSE,URINE NEGATIVE (NEGATIVE); OCCULT BLOOD,URINE MODERATE (NEGATIVE)
[2025-10-11 13:01] LABS: SQUAMOUS EPITHELIAL CELLS,UR NOT SEEN /HPF; UROTHELIAL CELLS,URINE NOT SEEN /HPF
== END 2025-10-11 14:00 | disposition home or self-care (01) ==
LOC: JP.ED 10:25
DX: R06.02 Shortness of breath (principal); N39.0 Urinary tract infection, site not specified; E86.0 Dehydration; I10 Essential (primary) hypertension; E66.9 Obesity, unspecified; Z68.34 Body mass index [BMI] 34.0-34.9, adult; Z88.0 Allergy status to penicillin; Z91.040 Latex allergy status; Z91.018 Allergy to other foods; Z79.899 Other long term (current) drug therapy
CPT/HCPCS: 36415; 71045; 80053; 81001; 82803; 83605; 83735; 83880; 84484; 85025; 85379; 85610; 86140; 87040; 87086; 87088; 87637; 93005; 93010; 96360; 96361; 99284; 99285; A9270; J7030